=== PATIENT | male | born 1955 | race Caucasian/White ===

== ENCOUNTER 2020-07-27 16:48 | Emergency (ER) | payer OTHER, MEDICARE ==
[2020-07-27 16:59] VITALS: BMI 23.0
[2020-07-27 17:50] LABS: BASO % 0.3 % (0-2.0); EOS % 0.5 % (0-4.5); HEMATOCRIT 37.2 % (35.4-49); HEMOGLOBIN 12.9 GM/dL (11.7-16.9); LYMPH % 17.7 % (8-40); MCH 32.5 pg (25.7-33.7); MCHC 34.8 g/dl (32.0-35.9); MEAN CELL VOLUME 93.5 fl (80-96); MONO % 10.9 % (3.8-10.2); NEUT % 70.6 % (42.8-82.8); PLATELET COUNT 174 K/MM3 (134-434); RBC 3.98 M/mm3 (4.00-5.60); RDW 13.5 % (11.9-15.9); WHITE BLOOD COUNT 5.7 K/mm3 (4.0-10.0)
[2020-07-27 17:59] LABS: INR 0.97 (0.83-1.09); PROTHROMBIN TIME (PATIENT) 11.7 SEC (9.7-13.0)
[2020-07-27 18:01] LABS: ACTIVATED PTT 27.5 SECONDS (25.2-36.5)
[2020-07-27 18:14] LABS: CHLORIDE 111 mmol/L (98-107); POTASSIUM 3.7 mmol/L (3.5-5.1); SODIUM 143 mmol/L (136-145)
[2020-07-27 18:16] LABS: CALCIUM 8.9 mg/dL (8.5-10.1)
[2020-07-27 18:17] LABS: ALBUMIN 3.9 g/dl (3.4-5.0); ANION GAP 5 MMOL/L (8-16); BLOOD UREA NITROGEN 19.8 mg/dL (7-18); CO2 27 mmol/L (21-32); GLUCOSE,RANDOM 86 mg/dL (74-106)
[2020-07-27 18:20] LABS: CREATININE 1.1 mg/dL (0.55-1.3); SGOT/AST 17 U/L (15-37); SGPT/ALT 24 U/L (13-61)
[2020-07-27 18:21] LABS: BILIRUBIN,TOTAL 0.3 mg/dL (0.2-1); TOT PROT 6.3 g/dl (6.4-8.2)
[2020-07-27 18:23] LABS: ALK PHOS 74 U/L (45-117)
[2020-07-27 23:03] VITALS: BP 155/84; PULSE 62; TEMP 98.1
== END 2020-07-27 23:08 | disposition home or self-care (01) ==
LOC: JER 16:48
DX: R07.2 Precordial pain (principal)
CPT/HCPCS: 36415; 71046-TC-FY; 80053; 83880; 84484; 85025; 85610; 85730; 93005; 93010; 99284-25

== ENCOUNTER 2021-08-06 09:09 | Emergency (ER) | payer OTHER, MEDICARE ==
[2021-08-06 09:54] VITALS: BMI 23.0
[2021-08-06] MEDS ORDERED: CASIRIVIMAB/IMDEVIMAB 10 ML in SODIUM CHLORIDE 100 ML IVPB ONE (10:06)
[2021-08-06 11:57] VITALS: TEMP 98
[2021-08-06 13:47] VITALS: BP 133/86; PULSE 77
== END 2021-08-06 13:47 | disposition home or self-care (01) ==
LOC: JCOVINFU 09:09 → JER 09:09 → JCOVINFU 13:47
DX: U07.1 COVID-19 (principal)
CPT/HCPCS: 99284-25; Q0240